=== PATIENT | female | born 1970 | race Caucasian/White ===

== ENCOUNTER 2024-05-02 07:56 | Emergency (ER) | payer OTHER, SELFPAY ==
[2024-05-02 08:12] VITALS: BP 109/74; PULSE 76; RESP 16; TEMP 36.6; O2SAT 95
[2024-05-02 08:32] LABS: Appearance Urine Clear (Clear); Bilirubin Urine Negative (Negative); Blood Urine Negative (Negative); Color Urine Yellow (Yellow); Glucose Urine Negative (Negative); Ketones Urine Negative (Negative); Leukocyte Esterase Urine Negative (Negative); Nitrite Urine Negative (Negative); Protein Urine Negative (Negative); Urobilinogen Urine 0.2 (0.2-1.0); pH Urine 6.5 (5.0-8.5)
--- NOTE | 2024-05-02 09:10 | CRLHL7_ITS ---
For Patients: As a result of the Century Cures Act, medical imaging exams and procedure reports are released immediately into your electronic medical record. You may view this report before your referring provider. If you have questions, please contact your health care provider. Indication: Left flank pain. Technique: CT of the abdomen and pelvis was performed without contrast. Comparison: 03/16/2015. Findings: Visualized lung bases: Clear. Liver: Similar too small to characterize hypodensity within the left hepatic lobe compared to prior CT from 2015. Normal gallbladder. No biliary ductal dilation. Pancreas: Mild stranding about the pancreatic tail. Pancreas is otherwise unremarkable. No peripancreatic fluid collection. Spleen: Unremarkable for unenhanced technique. Adrenals: Unremarkable for unenhanced technique. Kidneys: Punctate bilateral nonobstructing renal calculi. No hydronephrosis. No ureteral calculi. Aorta/IVC: Minimal atherosclerotic arterial calcifications. No aortic aneurysm. Lymph nodes: No lymphadenopathy. Bowel: Nonobstructed bowel. Normal appendix. No localized inflammatory changes. No intraperitoneal free air or fluid. Pelvis: Partially decompressed bladder. Otherwise unremarkable. Bones/body wall: Multilevel degenerative disc disease. Impression: 1. Mild stranding about the pancreatic tail concerning for acute pancreatitis. No discrete fluid collection is identified. 2. Punctate bilateral nonobstructing renal calculi. Please note that all CT scans at this facility use dose modulation, iterative reconstruction, and/or weight-based dosing when appropriate to reduce radiation dose to as low as reasonably achievable. Dictated by Julia Landers MD @ 05/02/2024 9:49:24 AM (Electronically Signed)
--- NOTE | 2024-05-02 09:11 | ED.GENADULT ---
HPI - General Adult General Chief complaint: Flank Pain Stated complaint: LT flank pain goes up back Time Seen by Provider: 05/02/24 09:04 History of Present Illness HPI narrative: This 54-year-old female comes in with left flank pain that began 3 days ago. She states she has had symptoms like this in the past which spontaneously resolved. She does not report any dysuria. She also has not had any strenuous activity or injury event recently. She arrives here with normal vital signs. She does not have any personal history of kidney stones that she knows of but states that her daughter recently passed a kidney stone. Related Data Home Medications ?Medication ?Instructions ?Recorded ?Confirmed famotidine 20 mg tablet mg 05/02/24 fluticasone propionate 50 intranasal 05/02/24 mcg/actuation nasal spray,suspension gabapentin 300 mg capsule mg 05/02/24 hydroxyzine HCl 10 mg tablet mg 05/02/24 ibuprofen 05/02/24 lisinopril 20 tab 05/02/24 mg-hydrochlorothiazide 12.5 mg tablet loratadine 10 mg tablet mg 05/02/24 lorazepam 1 mg tablet (Ativan) mg 05/02/24 omeprazole 20 mg tablet,delayed mg PO 05/02/24 release sertraline 100 mg tablet mg 05/02/24 Previous Rx's ?Medication ?Instructions ?Recorded hydrocodone 5 mg-acetaminophen 325 1 tab PO Q4-6H PRN pain #10 tabs 05/02/24 mg tablet ketorolac 10 mg tablet 10 mg PO Q8H 5 days #15 tabs 05/02/24 ondansetron HCl 4 mg tablet 4 mg PO Q6H #20 tabs 05/02/24 Allergies Allergy/AdvReac Type Severity Reaction Status Date / Time erythromycin base Allergy Verified 05/02/24 08:17 Sulfa (Sulfonamide Allergy Verified 05/02/24 08:17 Antibiotics) Review of Systems Status of ROS: Reports: 10 or more systems reviewed and unremarkable except as noted in History and below Narrative: Constitutional: No fevers, no weight gain or loss. Eyes: No discharge. No vision changes. HENT: No congestion, no sore throat, no ear pain. Cardiovascular: No chest pain, no palpitations. Respiratory: No shortness of breath, no wheezes, no cough. Gastrointestinal: No vomiting, no diarrhea. Left flank pain radiating into her left abdomen. Nausea but no vomiting. Genitourinary: No dysuria, no hematuria. Musculoskeletal: Normal range of motion. Skin: No rashes, no pruritis. Neurological: No dizziness, weakness, sensory change, speech change. Endo/Heme/Allergies: No bruising or bleeding. No polydipsia. Pysch: no suicidality, no anxiety, no insomnia. All other systems reviewed and are negative. [facility] Social History Smoking Status: Never smoker Do you use any of these nicotine containing products: None How often do you have a drink containing alcohol: never AUDIT-C Alcohol total score: 0 Non-prescribed substance use: marijuana (any form) Exam Narrative: Exam Narrative: Constitutional: Well-developed, well-nourished, no acute distress. HEENT: Normocephalic, atraumatic. Neck: Normal range of motion. Nontender. Supple. Heart: Regular. No murmurs. Normal rate. Intact distal pulses. Lungs: Clear to auscultation. No chest discomfort. No wheezes, rhonchi, or rales. Abdomen: Normal bowel sounds. No rebound tenderness. Left flank pain radiating into her left abdomen. Genitalia: Deferred. Back: No midline tenderness. Normal range of motion. Extremities: Normal range of motion. No injury. Skin: Intact. No rash. Warm. No erythema or pallor. Neurologic: No altered sensation. No weakness. Alert and oriented. Psychiatric: No suicidality. No anxiety or depression. No insomnia. Nursing notes and vitals signs are reviewed. Const: Vital Signs, click to edit/add: Vital Signs - 24 hr 05/02/24 08:12 Temperature 97.8 F Pulse Rate [Left P ulse Oximeter] 76 Respiratory Rate 16 Blood Pressure [Ri ght Upper Arm] 109/74 Pulse Oximetry 95 Oxygen Delivery Me thod Room Air Course Vital Signs Vital signs: Initial Vital Signs Temperature 97.8 F 05/02/24 08:12 Temperature Source Temporal Artery Scan 05/02/24 08:12 Pulse Rate 76 05/02/24 08:12 Respiratory Rate 16 05/02/24 08:12 Blood Pressure 109/74 05/02/24 08:12 Blood Pressure Mean 85 05/02/24 08:12 Blood Pressure Position Sitting 05/02/24 08:12 Pulse Oximetry 95 05/02/24 08:12 Oxygen Delivery Method Room Air 05/02/24 08:12 Vital Signs Temperature 97.8 F 05/02/24 08:12 Pulse Rate 76 05/02/24 08:12 Respiratory Rate 16 05/02/24 08:12 Blood Pressure 109/74 05/02/24 08:12 Pulse Oximetry 95 05/02/24 08:12 Oxygen Delivery Method Room Air 05/02/24 08:12 Temperature 97.8 F 05/02/24 08:12 Pulse Rate 76 05/02/24 08:12 Respiratory Rate 16 05/02/24 08:12 Blood Pressure 109/74 05/02/24 08:12 Pulse Oximetry 95 05/02/24 08:12 Oxygen Delivery Method Room Air 05/02/24 08:12 Medications Administered Medications: Discontinued Medications Generic Name Dose Route Start Last Admin Trade Name [place] PRN Reason Stop Dose Admin Hydrocodone Bitart/Acetaminophen 1 tab 05/02/24 09:10 05/02/24 09:24 Hydrocodone-Acetamin 5-325 Mg 1 Tab PO 05/02/24 09:11 1 tab ONCE ONE Administration Ketorolac Tromethamine 10 mg 05/02/24 09:10 05/02/24 09:25 Ketorolac 10 Mg Tablet PO 05/02/24 09:11 10 mg ONCE ONE Administration Ondansetron HCl 4 mg 05/02/24 09:10 05/02/24 09:24 Ondansetron Odt 4 Mg Tab PO 05/02/24 09:11 4 mg ONCE ONE Administration Medical Decision Making MDM Narrative Medical decision making narrative: This patient comes in with left flank pain that is somewhat suspicious for a kidney stone. She also reports postprandial symptoms with worsening pain and nausea. She has had symptoms like this in the past. A CT scan of the abdomen and pelvis without contrast is obtained and shows bilateral small kidney stones but no uropathy or obstruction in that regard. Her pancreas has some stranding that may indicate pancreatitis. Labs were then drawn which returned with normal results including normal lipase and liver studies. The patient did receive oral doses of Toradol, and [place], and Zofran and feels much better. I did advise her regarding signs and symptoms that would indicate a need for return and re-evaluation. I also recommended that she follow up with the primary physician or perhaps even a windshield wiper repairer and may wish to consider an upper GI scope. Nevertheless her symptoms may be related to a kidney stone that is now passed through. She is not having any symptoms currently. Lab Data Labs: Lab Results 05/02/24 05/02/24 Range/Units 08:25 10:19 WBC 9.19 (4.50-11.00) K/uL RBC 4.65 (4.00-5.20) m/uL Hgb 13.9 (12.0-16.0) gm/dL Hct 42.3 (33.0-51.0) % MCV 91 (80-100) fL MCH 30 (26-34) pg MCHC 33 (32-36) gm/dL RDW Coeff of Domenico 13.3 (11.5-15.5) % Plt Count 269 (140-440) K/uL Neut % (Auto) 68.0 (42.0-72.0) % Lymph % (Auto) 19.3 L (20-44) % [place] % (Auto) 10.9 (0.0-11.0) % Eos % (Auto) 1.5 (0.0-7.0) % Baso % (Auto) 0.2 (0.0-3.0) % Neut # (Auto) 6.25 (1.7-7.0) K/uL Lymph # (Auto) 1.80 (0.90-2.90) K/uL [place] # (Auto) 1.00 H (0.00-0.90) K/UL Eos # (Auto) 0.14 (0.00-0.50) K/uL Baso # (Auto) 0.02 (0.00-0.30) K/uL Abs Immat Gran (auto) 0.01 (0.00-0.30) K/uL Imm/Tot Granulo (auto) 0.1 % Sodium 134 L (135-149) mmol/L Potassium 3.5 L (3.6-5.1) mmol/L Chloride 101 (96-114) mmol/L Carbon Dioxide 27 (20-32) mmol/L Anion Gap 6 L (7-15) mEq/L BUN 14 (7-30) mg/dL Creatinine 0.6 (0.5-1.5) mg/dL Estimated Creat Clear 91.48 Estimated GFR 106 ml/min Glucose 112 (60-115) mg/dL Calcium 9.0 (8.4-10.6) mg/dL Total Bilirubin 0.4 (0.1-1.5) mg/dL Direct Bilirubin 0.2 (0.0-0.5) mg/dL AST 19 (12-35) U/L ALT 17 (4-35) U/L Alkaline Phosphatase 63 (40-150) U/L Total Protein 6.8 (6.0-8.3) g/dL Albumin 4.2 (3.3-5.0) g/dL Lipase 292 (23-300) U/L Urine Color Yellow (Yellow) Urine Appearance Clear (Clear) Urine pH 6.5 (5.0-8.5) Ur Specific [place] 1.020 (1.000-1.030) Urine Protein Negative (Negative) Urine Glucose (UA) Negative (Negative) Urine Ketones Negative (Negative) Urine Blood Negative (Negative) Urine Nitrite Negative (Negative) Urine Bilirubin Negative (Negative) Urine Urobilinogen 0.2 (0.2-1.0) Ur Leukocyte Esterase Negative (Negative) Imaging Data CT scan - abdomen: Radiologist's impression: 1. Mild stranding about the pancreatic tail concerning for acute pancreatitis. No discrete fluid collection is identified. 2. Punctate bilateral nonobstructing renal calculi. Discharge Plan Discharge Clinical Impression: Flank pain, Abdominal pain Additional Instructions: Take medication as needed and directed. Follow up with MD for ongoing management or return if worsening. Consider endoscopies also. Call [phone] for appointment. Prescriptions: New hydrocodone-acetaminophen 5-325 mg tablet 1 tab PO Q4-6H PRN (Reason: pain) Qty: 10 0RF ondansetron HCl 4 mg tablet 4 mg PO Q6H Qty: 20 0RF ketorolac 10 mg tablet 10 mg PO Q8H 5 Days Qty: 15 0RF No Action lisinopril-hydrochlorothiazide 20-12.5 mg tablet Patient Comments: TAKE ONE TABLET BY MOUTH EVERY DAY sertraline 100 mg tablet Patient Comments: TAKE ONE AND ONE-HALF TABLETS BY MOUTH EVERY DAY famotidine 20 mg tablet Patient Comments: [NO ORIGINAL SIG] gabapentin 300 mg capsule Patient Comments: [NO ORIGINAL SIG] lorazepam [Ativan] 1 mg tablet Patient Comments: [NO ORIGINAL SIG] hydroxyzine HCl 10 mg tablet Patient Comments: TAKE ONE TABLET BY MOUTH EVERY 6 HOURS NEEDED FOR ITCHING fluticasone propionate 50 mcg/actuation spray,suspension INTRANASAL Patient Comments: [NO ORIGINAL SIG] loratadine 10 mg tablet Patient Comments: [NO ORIGINAL SIG] omeprazole 20 mg tablet,delayed release (DR/EC) PO Patient Comments: TAKE ONE TABLET BY MOUTH EVERY DAY BEFORE A MEAL ibuprofen Follow Up/Referrals: Savannah Villaseñor PA [Primary Care Provider] -
[2024-05-02] MEDS: ONDANSETRON ODT 4 MG TAB PO (09:24)
[2024-05-02] MEDS: HYDROCODONE-ACETAMIN 5-325 MG 1 TAB PO (09:24)
[2024-05-02] MEDS: KETOROLAC 10 MG TABLET PO (09:25)
--- OUTSIDE RECORDS SUMMARY | 2024-05-02 09:32 | XMS_ITS | Referral Summary ---
Author Organization [place] Address [address] [place] [address] Care Team Providers Care Consulting Services Manager Name Role Phone Clinic, [facility] Primary Care Provide r Allergies Active Allergy Reactions Criticality Noted Date Comments Acetaminophen Itching 11/22/2009 Erythromycin 02/01/2003 unknown Sulfa Antibiotics 11/15/2002 unknown Trazodone And Nefazodone 11/15/2002 unknown Bupropion 10/24/2018 Medications methylphenidate (CONCERTA) 27 MG CR tabletIndications: ADHD (attention deficit hyperactivity disorder) Take 1 tablet by mouth every morning. 31 tablet 0 1 Active lorazepam (ATIVAN) 1 MG tabletIndications: Anxiety attack Take 1 tablet by mouth every 6 hours as needed for anxiety. 24 tablet 0 1 Active buPROPion (WELLBUTRIN XL) 300 MG 24 hr tabletIndications: Mild major depression (H) Take 1 tablet by mouth every morning. 90 tablet 1 1 Active cyanocobalamin 1000 MCG/ML injectionIndicatio ns:Pernicious anemia Inject 1 mL as directed every 30 days. 1 mL 5 1 Active loratadine (CLARITIN) 10 MG tabletIndications: Chronic rhinitis Take 1 tablet by mouth daily. 90 tablet 1 1 Active Needle, Disp, (B-D HYPODERMIC NEEDLE) 25G X 1 MISCIndications:Vi tamin B 12 deficiency 1 Device every 30 days. 12 each 0 1 Active telmisartan (MICARDIS) 40 MG tabletIndications: Benign hypertension Take 1 tablet by mouth daily. 90 tablet 1 1 Active amitriptyline (ELAVIL) 25 MG tabletIndications: Sleep disorder Take 1 tablet by mouth At Bedtime. 90 tablet 3 2 Active Escitalopram Oxalate (LEXAPRO PO) Take by mouth. Active methylprednisoLONE (MEDROL DOSEPACK) 4 MG tablet Take 1 tablet by mouth See Admin Instructions. Follow package directions. 1 Package 0 2 Active methocarbamol (ROBAXIN) 750 MG tablet Take 0.5 tablets by mouth 4 times daily as needed. 30 tablet 0 2 Active albuterol (PROAIR HFA/PROVENTIL HFA/VENTOLIN HFA) 108 (90 BASE) MCG/ACT Inhaler Inhale 2 puffs into the lungs every 6 hours as needed for shortness of breath / dyspnea or wheezing 1 Inhaler 8 Active oxyCODONE-acetamin ophen (PERCOCET) 5-325 MG tablet Take 1-2 tablets by mouth every 4 hours as needed for pain 12 tablet 9 Active Active Problems Problem Noted Date Diagnosed Date HYPERLIPIDEMIA LDL GOAL <130 04/28/2010 Mild major depression 10/02/2009 ADHD (attention deficit hyperactivity disorder) 09/07/2009 Endometriosis 12/22/2007 Tobacco use disorder 06/02/2007 Family history of diabetes mellitus 03/26/2005 Essential hypertension 02/19/2005 Overview (03/29/2015): Problem list name updated by automated process. Provider to review Abnormal maternal glucose to lerance, complicating , childbirth, or the puerperium, unspecified as to episode of care 03/18/2004 Generalized anxiety disorder 05/11/2003 Migraine 11/15/2002 Overview (03/29/2015): Problem list name updated by automated process. Provider to review Pernicious anemia Overview (04/30/2015): Diagnosis updated by automated process. Provider to review and confirm. Resolved Problems Problem Noted Date Diagnosed Date Resolved Date Pure hypercholesterolemia 06/16/2007 Depressive disorder, not elsewhere classified 11/16/19 03 10/02/2009 Immunizations Name Administration Dates Next Due HepB 05/15/2008,11/05/2007,09/20/2007 Influenza (IIV3) PF 05/15/2008,08/17/2006,2002 Pneumococcal 23 valent 09/06/2010 TD,PF 7+ (Tenivac) 11/10/1997 TDAP Vaccine (Adacel) 12/22/2007 Social History Tobacco Use Types Packs/Day Years Used Date Smoking Tobacco: Every Day Cigarettes Smokeless Tobacco: Never Alcohol Use Standard Drinks/Week Comments No 0 (1 standard drink = 0.6 oz pur e alcohol) Adolescent Education Answer Date Record ed Getting School Help Needed Not on file 04/04 Comments No Sex and Gender Information Value Date Recorded Sex Assigned at Not on file Legal Sex 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 Gender Identity Not on file Sexual Orientation Not on file 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 on file Not on file Not on file Last Filed Vital Signs Vital Sign Reading Time Taken Comments Blood Pressure 179/115 10/24/2018 11:03 AM CDT Pulse 83 10/24/2018 11:03 AM CDT Temperature 36.6 ??C (97.9 ??F) 10/24/2018 11:03 AM C DT Respiratory Rate 16 10/24/2018 11:03 AM CDT Oxygen Saturation 100% 10/24/2018 11:03 AM CDT Inhaled Oxygen Concentration - - Weight 83 kg (183 lb) 10/24/2018 11:03 AM CDT Height 162.6 cm (5' 4) 08/26/2017 1:50 PM RADIOSONDE OPERATOR Body Mass Index 31.41 08/26/2017 1:50 PM RADIOSONDE OPERATOR Plan of Treatment Not on file Insurance / Care Teams Consulting Services Manager Relationship Specialty Start Date End Date [facility], [facility] [address] [place] [address] PCP - General 05/15/16
--- OUTSIDE RECORDS SUMMARY | 2024-05-02 09:32 | XMS_ITS | Clinical Summary ---
Author Organization [place] Address [address] [place] [id number] Care Team Providers Care Lead Consultant Name Role Phone Clinic, [facility] Primary Care Provide r Allergies Active Allergy [...] 7+ (Tenivac) 11/10/1997 TDAP Vaccine (Adacel) 12/22/2007 Family History Medical History Relation Comments Cancer Father lymphoma Cardiovascular Father Heart Disease Father Bypass - stent p lacement - age 70 Hypertension Father Alzheimer Disease Maternal Grandfather Cardiovascular Maternal Grandmother CHF Diabetes Maternal Grandmother Neurologic Disorder Mother brain tumour removed - benign C.A.D. 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
--- OUTSIDE RECORDS SUMMARY | 2024-05-02 09:33 | XMS_ITS | Encounter Summary ---
Author Organization [place] Address [address] [place] [address]. [place] [address] Care Team Providers Care Idea Worker Name Role Phone Damari Minaya MD Primary Care Provider [phone] Clinic, [facility] Primary Care Provider [facility] Primary Care Provide r Encounter Details Date Type Department Care Team (Late st Contact Info) Description 09/02/2005 [facility] [id number] [place] [id number] [place] [id number] [place] [id number] 09-02-05 Social History Tobacco Use Types Packs/Day Years Used Date Smoking Tobacco: Every Day Cigarettes Smokeless Tobacco: Never Alcohol Use Standard Drinks/Week Comments No 0 (1 standard drink = 0.6 oz pur e alcohol) Comments No Sex and Gender Information Value Date Recorded Sex Assigned at Not on file 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 Gender Identity Not on file Sexual Orientation Not on file 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 Not on file Not on file documented as of this encounter Plan of Treatment Not on file documented as of this encounter Visit Diagnoses Diagnosis OPERATIVE REPORT- Primary documented in this encounter Care Teams Idea Worker Relationship Specialty Start Date End [place]ari Min[place] [id number] [place] [address] [place] [address] PCP - General 08/13/01 06/10/12 [facility] [address] [place] [address] PCP - General 06/11/12 05/14/16 [facility] [address] [place] [address] PCP - General 05/15/16 documented as of this encounter
--- OUTSIDE RECORDS SUMMARY | 2024-05-02 09:33 | XMS_ITS | Clinical Summary ---
Author Organization [employer] [facility] Address [place], [place] [address] Care Team Providers Care Supply Person Name Role Phone Savannah Villaseñor Primary Care Provider Allergies Active Allergy Reactions Criticality Noted Date Comments Bupropion *Unknown 10/24/2018 Citalopram Palpitations,Diaphor esis 11/05/2020 Erythromycin *Unknown 09/01/2005 Hydrocodone-Acetaminoph en Itching 11/05/2020 Sulfa (Sulfonamide Antibiotics) Rash 09/01/2005 Allergies and reactions per H&P. Medications Medication Sig Dispensed Refills Start Date End Date Status LORazepam (ATIVAN) 1 mg tablet Take 1 mg by mouth. 09/13/2019 Active sertraline (ZOLOFT) 100 mg tablet Take 100 mg by mouth once daily. 03/04/2021 Active albuterol HFA (ProAir HFA) 90 mcg/actuation inhalerIndications :Mild intermittent asthma without complication Inhale 2 Puffs by mouth 4 times daily if needed for Shortness Of Breath. 1 Each 4 02/28/2022 Active fluticasone (50 mcg per actuation) nasal solution (FLONASE)Indicatio ns:Acute recurrent maxillary sinusitis Inhale 2 Sprays to both nostrils once daily. 48 g 3 04/23/2023 Active ketoconazole 2% shampoo (NIZORAL) 2 % shampooIndications :Pruritus, unspecified Use 2-3 times per week 120 mL 2 10/23/2023 Active famotidine (PEPCID) 20 mg tabletIndications: Gastroesophageal reflux disease, unspecified whether esophagitis present TAKE 1 TABLET TWICE A DAY 60 Tablet 12/29/2023 Active omeprazole 20 mg tabletIndications: Gastric reflux Take 1 Tablet (20 mg) by mouth once daily before a meal. 60 Tablet 02/05/2024 Active hydrOXYzine HCL (ATARAX) 10 mg tabletIndications: Pruritus, unspecified Take 1 Tablet (10 mg) by mouth every 6 hours if needed for Itching. 30 Tablet 1 02/05/2024 Active loratadine (CLARITIN) 10 mg tabletIndications: Allergic rhinitis, unspecified seasonality, unspecified trigger TAKE 1 TABLET DAILY 90 Tablet 3 02/24/2024 Active gabapentin (NEURONTIN) 300 mg capsuleIndications :Myalgia TAKE 1 CAPSULE AT BEDTIME 90 Capsule 03/16/2024 Active lisinopril-hydroch lorothiazide 20-12.5 mg tablet (PRINZIDE)Indicati ons:Hypertension, unspecified type Take 1 Tablet by mouth once daily. 15 Tablet 04/24/2024 Active lisinopril-hydroch lorothiazide 20-12.5 mg tablet (PRINZIDE)Indicati ons:Hypertension, unspecified type Take 1 Tablet by mouth once daily. 30 Tablet 03/24/2024 4 Discontinued Active Problems Problem Noted Date Diagnosed Date Pap smear for cervical cancer screening 11/28/19 23 Overview (01/26/2023): 11/2022 NIL/HPV negative. Plan: Pap/HPV due 11/2027. Diffuse pain 02/28/2022 Myofascial pain 02/28/2022 Bruxism 11/14/2021 Bilateral temporomandibular joint pain 2 Hypertension 07/30/2021 Body aches 07/30/2021 Arthralgia 07/30/2021 Chronic GERD 12/28/2020 Hemorrhoids, internal 12/28/2020 Atypical chest pain 11/09/2020 Tinnitus of both ears 11/09/2020 Polyneuropathy, unspecified 06/20/2020 Insufficient sleep syndrome 03/14/2019 Other spondylosis with radiculopathy, cervical r egion 11/04/2018 Presbyopia 02/22/2018 Hypermetropia of both eyes 02/22/2018 B12 deficiency 06/10/2011 Back strain 02/01/2010 Mild major depression 10/02/2009 Endometriosis 12/22/2007 Migraine 11/15/2002 Overview (11/09/2020): Problem list name updated by automated process. Provider to review Unspecified essential hypertension Irritable bowel syndrome without diarrhea Resolved Problems Problem Noted Date Diagnosed Date Resolved Date Pruritus, unspecified 2020 Acute maxillary sinusitis, unspecified 03/21/2021 Encounters Date Type Department Care Team Description 04/20/2024 Telephone [facility] [place] [address] [address] Savannah Villaseñor PA Refill Request (Lisinopril-hydroch lorothiazide (20-12.5 Mg)) 03/15/2024 Refill [facility] [place] [address] [place] [address] Savannah Villaseñor PA Refill Request (Lisinopril-HCTZ/) 03/13/2024 Refill [facility] [id number] [place] [phone] Yumiko Hernandez MD Refill Request (Gabapentin) 02/22/2024 Refill [facility] [address] [place] [address] Yumiko Hernandez MD Refill Request (Loratadine) 02/08/2024 Orders Only [facility] [place] [address] [place] [address] Savannah Villaseñor PA 1 scan: (1-Ord) 02/05/2024 02/07/2024 Orders Only [facility] [place] [address] [place] [address] Savannah Villaseñor PA <No scans attached> 02/05/2024 1:55 PM CDT Ancillary Procedure [place] [id number] [place] [address] 02/05/2024 1:10 PM CDT Office Visit [facility] [place] [address] [place] [address] Savannah Villaseñor PA Derm Problem (all over); Hair/Scalp Problem (hair loss ) 02/05/2024 Travel 02/02/2024 Travel from Last 3 Months Immunizations Name Administration Dates Next Due COVID-19 vaccine (Moderna 100mcg/0.5mL) PF, MDV 09/11/2020,08/14/2020 COVID-19 vaccine (Pfizer-Bio NTech 30mcg/0.3mL) 12YO+ REBEKAH-SUCROSE PF, MDV 07/26/2021 Hepatitis B (Adult) 05/15/2008,11/05/2007,2007 Influenza, IIV3 (Age >=3 years) 04/15/20 12,05/15/2008,08/17/2006,2002 Influenza, IIV4 07/26/2021, 0,04/19/2019,2016,04/09/2016,07/16/2015 Influenza, Intradermal Inactivated 04/06/2013 Pneumococcal Poly,23-Valent (Pneumovax) 09/06/2010 Pneumococcal conj 13-Valent (Prevnar 13) 12/22/2022 Rabies Vaccine 07/02/2008 Td (Age >=7 Years) 12/22/2007,11/10/1997, 997 Td, Preservative Free (age > = 7 Years) 11/10/1997 Tdap 12/22/2022,12/22/2007 Zoster (Shingrix-RZV, recombinant) 12/22/2022 Family History Medical History Relation Name Comments Coronary artery disease Father Lymphoma Father Other Maternal Grandmother Pernici ous anemia COPD Mother Hypertension Mother Cancer-breast No Family History Relation Name Status Comments Father Maternal Grandmother Mother Social History Tobacco Use Types Packs/Day Years Used Date Smoking Tobacco: Former Cigarettes Q uit: 06/22/2012 Smokeless Tobacco: Never Tobacco Cessation:Counseling Given: Yes Comments:pamphlet given 11/19/2011 Alcohol Use Standard Drinks/Week Comments No 0 (1 standard drink = 0.6 oz pur e alcohol) PHQ-2 Answer Date Recorded PHQ-2 TOTAL SCORE 0 02/05/2024 Social Connections Answer Date Recorded Do you often feel lonely or isolated from those around you? 0 09/21/2023 Financial Resource Strain Answer Date R ecorded Difficulty of Paying Living Expenses 3 09/22/2023 Difficulty of Paying Living Expenses Not on file 09/22/2023 Food Insecurity Answer Date Recorded Do you worry your food will run out before you are able to buy more? 1 09/21/2023 Transportation Needs Answer Date Record ed Does lack of transportation keep you from medica l appointments? 1 09/21/2023 Does lack of transportation keep you from work, meetings or getting things that you need? 1 09/21/2023 Housing Stability Answer Date Recorded What is your housing situation today? 1 09/21/2023 Sex and Gender Information Value Date Recorded Sex Assigned at Not on file Gender Identity Not on file Sexual Orientation Not on file Obstetrics History Para Term AB IAB SAB Ectopic Multiple Livin g Live Births 3 3 3 3 Date Outcome GA Total Labor Labor/2nd/3rd Weight Sex Type Anes PTL Kathryn A1 A5 Name Clin Term Term Term Last Filed Vital Signs Vital Sign Reading Time Taken Comments Blood Pressure 116/72 02/05/2024 1:10 PM CDT Pulse 95 02/05/2024 1:10 PM CDT Temperature 37.1 ??C (98.7 ??F) 02/05/2024 1:10 PM CD T Respiratory Rate 18 12/22/2022 10:00 AM CDT Oxygen Saturation 95% 02/05/2024 1:10 PM CDT Inhaled Oxygen Concentration - - Weight 80 kg (176 lb 6.4 oz) 02/05/2024 1:10 PM CDT Height 163 cm (5' 4.17) 02/05/2024 1:10 PM CDT Body Mass Index 30.12 02/05/2024 1:10 PM CDT Plan of Treatment Health Maintenance Due Date Last Done Comments Colonoscopy through age 75 2014 Zoster (shingles) series for age 50+ (2 of 2) 02/16/2023 12/22/2022 Mammogram for age 45-75 01/15/2024 01/15/20 23, 10/03/2021, 02/14/2020, Additional history exists COVID-19 vaccine series ( season) 2024 07/26/2021, 09/11/2020, 08/14/2020 Influenza for age 50-64 02/28/2024 07/26/19 22, 04/30/2020, 04/19/2019, Additional history exists BMI (ht and wt on same day) for age 18+ 02/04/2025 02/05/2024, 10/23/2023, 12/22/2022, Additional history exists Depression screening for age 12+ 02/06/2025 02/07/2024, 02/05/2024, 12/22/2022, Additional history exists Pap test for age 21-65 12/23/2027 , 12/22/2022, 12/23/2010 (Completed outside of [facility]) Lipids for age 45-75 02/13/2028 02/12/2023, 12/22/2022, 07/30/2021 Tetanus booster 12/22/2032 12/22/2022, 11/28, 12/22/2007, Additional history exists HIV for age 15-65 Completed 12/22/2022 Hepatitis C screening for age 18-79 Completed 12/22/2022 Pneumococcal series for age 6-64 Aged Out 12/22/2022, 09/06/2010 No longer eligibl e based on patient's age to complete this topic Tdap Completed 12/22/2022, 12/22/2007 Procedures Procedure Name Priority Date/Time Associated Diagnosis Comments CBC WITH AUTO DIFFERENTIAL Routine 02/05/2024 2:05 PM CDT Pruritus, unspecified FERRITIN Routine 02/05/2024 2:05 PM CDT Pruritus, unspecified IRON PLUS IRON BINDING CAP Routine 02/05/2024 2:05 PM CDT Pruritus, unspecified CBC WITH AUTO DIFFERENTIAL Routine 02/05/2024 2:05 PM CDT Pruritus, unspecified VITAMIN D 25 (DEFICIENCY) Routine 02/05/2024 2:05 PM CDT Pruritus, unspecified Hair loss VITAMIN B12 Routine 02/05/2024 2:05 PM CDT Pruritus, unspecified TSH WITH REFLEX Routine 02/05/2024 2:05 PM CDT Hair loss XR FOOT 3 VIEWS RIGHT Routine 02/05/2024 2:03 PM CDT Foot pain, right EKG 12 LEAD Routine 02/05/2024 12:00 AM CDT Chest heaviness LIPID PANEL W REFLEX MEASURED LDL Routine 02/12/2023 10:41 AM CDT Elevated lipids XR MAMMO BILAT SCREENING Routine 01/14/2023 11:26 AM CDT Visit for screening mammogram LC HIV-1/O/2, 4TH GENERATION Routine 12/22/2022 10:59 AM CDT Routine general medical examination at a health care facility LC HCV ANTIBODY RFX TO QUANT PCR Routine 12/22/2022 10:59 AM CDT Routine general medical examination at a health care facility HPV HIGH RISK Routine 12/22/2022 10:30 AM CDT Cervical cancer screening from Last 3 Months or Most Recently Relevant to Health Maintenance Results * (ABNORMAL) CBC WITH AUTO DIFFERENTIAL (02/05/2024 2:05 PM CDT) WHITE BLOOD COUNT 8.9 4.5 - 11.0 thou/cu mm 02/05/2024 2:07 PM CDT [facility] [place] [place] RED BLOOD COUNT 4.71 4.00 - 5.20 mil/cu mm 02/05/2024 2:07 PM CDT [facility] [place] [place] HEMOGLOBIN 14.3 12.0 - 16.0 g/dL 02/05/2024 2:07 PM CDT [facility] [place] [place] HEMATOCRIT 43.9 33.0 - 51.0 % 02/05/2024 2:07 PM CDT [facility] [place] [place] MCV 93 80 - 100 fL 02/05/2024 2:07 PM CDT [facility] [place] [place] MCH 30.4 26.0 - 34.0 pg 02/05/2024 2:07 PM CDT [facility] [place] [place] MCHC 32.6 32.0 - 36.0 g/dL 02/05/2024 2:07 PM CDT [facility] [place] [place] RDW 13.8 11.5 - 15.5 % 02/05/2024 2:07 PM CDT [facility] [place] [place] PLATELET COUNT 254 140 - 440 thou/cu mm 02/05/2024 2:07 PM CDT [facility] [place] [place] MPV 10.8 6.5 - 11.0 fL 02/05/2024 2:07 PM CDT [facility] [place] [place] % NEUT 64.0 % 02/05/2024 2:07 PM CDT [facility] [place] [place] % LYMPH 23.0 % 02/05/2024 2:07 PM CDT [facility] [place] [place] % MONO 10.0 % 02/05/2024 2:07 PM CDT [facility] [place] [place] % EOS 2.7 % 02/05/2024 2:07 PM CDT [facility] [place] [place] % BASO 0.3 % 02/05/2024 2:07 PM CDT [facility] [place] [place] ABSOLUTE NEUTROPHILS 5.7 1.7 - 7.0 thou/cu mm 02/05/2024 2:07 PM CDT [facility] [place] [place] ABSOLUTE LYMPHOCYTES 2.1 0.9 - 2.9 thou/cu mm 02/05/2024 2:07 PM CDT [facility] [place] [place] ABSOLUTE MONOCYTES 0.9(H) <0.9 thou/cu mm 02/05/2024 2:07 PM CDT [facility] [place] [place] ABSOLUTE EOSINOPHILS 0.2 <0.5 thou/cu mm 02/05/2024 2:07 PM CDT [facility] [place] [place] ABSOLUTE BASOPHILS 0.0 <0.3 thou/cu mm 02/05/2024 2:07 PM CDT [facility] [place] [place] Blood BLOOD SPECIMEN / Unknown Venipuncture / Unknown 02/05/2024 2:05 PM CDT 02/05/2024 2:05 PM CDT Savannah MAYERS HEMATOLOGY Performing Organization Address [facility]/ZIP Co de Phone Number [facility] [place] [place] [address] [facility] [address], * TSH WITH REFLEX (02/05/2024 2:05 PM CDT) TSH 0.40 0.27 - 4.20 uIU/mL 02/06/2024 5:47 AM CDT [facility] Blood BLOOD SPECIMEN / Unknown Venipuncture / Unknown 02/05/2024 2:05 PM CDT 02/05/2024 2:05 PM CDT Narrative [facility] - 02/06/2024 5:47 AM CDT In Adults, TSH values between 5.00 and 10.00 uIU/ml do not necessarily indicate the presence of Hypothyroidism. Correlation with clinical findings such as presence of goiter and/or Thyroperoxidase (TPO) Antibody may be helpful. For more information please refer to JASON 2004; 291: 228-238. Savannah MAYERS CHEMISTRY Performing Organization Address [facility] Co de Phone Number [facility] [address] [place] [address], * VITAMIN D 25 (DEFICIENCY) (02/05/2024 2:05 PM CDT) VITAMIN D TOTAL 42.8 20.0 - 80.0 ng/mL 02/06/2024 5:47 AM CDT [facility] Blood BLOOD SPECIMEN / Unknown Venipuncture / Unknown 02/05/2024 2:05 PM CDT 02/05/2024 2:05 PM CDT Narrative [facility] - 02/06/2024 5:47 AM CDT ? Vitamin D Status Deficiency: ? <20 ng/mL Insufficiency: ?20-29 ng/mL Sufficiency: ?30-80 ng/mL Possible Toxicity: ??>80 ng/mL Based on [place] of Medicine recommendations Biotin supplements may cause clinically significant interference for this test assay. ??If interference is suspected, it is strongly recommended that biotin is discontinued for at least one week prior to retesting. Savannah MAYERS SEND OUTS Performing Organization Address [facility] Co de Phone Number [facility] [address] [place] [address], * IRON PLUS IRON BINDING CAP (02/05/2024 2:05 PM CDT) IRON 85 37 - 145 ug/dL 02/06/2024 5:47 AM CDT [facility] UIBC (UNSATURATED) 190 112 - 347 ug/dL 02/06/2024 5:47 AM CDT [facility] IRON BINDING CAPACITY 275 250 - 400 ug/dL 02/06/2024 5:47 AM CDT [facility] IRON,% SATURATION 31 14 - 50 % 02/06/2024 5:47 AM CDT [facility] Blood BLOOD SPECIMEN / Unknown Venipuncture / Unknown 02/05/2024 2:05 PM CDT 02/05/2024 2:05 PM CDT Savannah MAYERS CHEMISTRY Performing Organization Address [facility] Co de Phone Number [facility] [address] [place] [address], * FERRITIN (02/05/2024 2:05 PM CDT) FERRITIN 134.0 15.0 - 150.0 ng/mL 02/06/2024 5:47 AM CDT [facility] Blood BLOOD SPECIMEN / Unknown Venipuncture / Unknown 02/05/2024 2:05 PM CDT 02/05/2024 2:05 PM CDT Savannah MAYERS CHEMISTRY Performing Organization Address [facility] Co de Phone Number [facility] [address] [place] [id number], [place] * VITAMIN B12 (02/05/2024 2:05 PM CDT) VITAMIN B12 525 232 - 1,245 pg/mL 02/06/2024 5:47 AM CDT [facility] Blood BLOOD SPECIMEN / Unknown Venipuncture / Unknown 02/05/2024 2:05 PM CDT 02/05/2024 2:05 PM CDT Narrative [facility] - 02/06/2024 5:47 AM CDT Biotin supplements may cause clinically significant interference for this test assay. ??If interference is suspected, it is strongly recommended that biotin is discontinued for at least one week prior to retesting. Savannah MAYERS CHEMISTRY Performing Organization Address [facility] de Phone Number [facility] [address] [place] [phone], [place] * XR FOOT 3 VIEWS RIGHT (02/05/2024 2:03 PM CDT) Anatomical Region Laterality Modality FEET, FOOT R Computed Radiogr aphy 02/05/2024 3:18 PM CDT Narrative 02/05/2024 3:18 PM CDT For Patients: ??As a result of the Century Cures Act, medical imaging exams and procedure reports are released immediately into your electronic medical record. ??You may view this report before your referring provider. ??If you have questions, please contact your health care provider. Indication: Right foot pain. Technique: Right foot 3 views Comparison: None Findings: Narrowing and spurring at the 1st MTP joint. Plantar calcaneal spur with adjacent ossicles. Pes cavus. No fracture. Midfoot alignment normal. Impression: First MTP degenerative joint disease, pes cavus and chronic plantar fasciitis with prominent plantar calcaneal spur. Dictated by Shabbir Ramos MD @ 02/05/2024 3:18:03 PM (Electronically Signed) Procedure Note Shabbir Ramos MD - 02/05/2024 For Patients: As a result of the 21st Century Cures Act, medical imagingexams and procedure reports are released immediately into your electronicmedical record. You may view this report before your referring provider.If you have questions, please contact your health care provider. Indication: Right foot pain. Technique: Right foot 3 views Comparison: None Findings: Narrowing and spurring at the 1st MTP joint. Plantar calcaneal spur withadjacent ossicles. Pes cavus. No fracture. Midfoot alignment normal. Impression: First MTP degenerative joint disease, pes cavus and chronic plantarfasciitis with prominent plantar calcaneal spur. Dictated by Shabbir Ramos MD @ 02/05/2024 3:18:03 PM (Electronically Signed) Savannah MAYERS GENERAL IMAGIN G * EKG 12 LEAD (02/05/2024 12:00 AM CDT) Savannah MAYERS EKG ORD * (ABNORMAL) LIPID PANEL W REFLEX MEASURED LDL (02/12/2023 10:41 AM CDT) CHOLESTEROL,TOTAL 217(H) 100 - 199 mg/dL 02/13/2023 12:55 AM CDT [facility] [employer] TRAL [facility]AT[facility] Comment: Cholesterol, Total Reference Ranges Desirable <200 mg/dL Borderline 200-239 mg/dL High >=240 mg/dL TRIGLYCERIDES 134 <150 mg/dL 02/13/2023 12:55 AM CDT [facility] [employer] [facility]ORAT[facility] HDL CHOLESTEROL 55 >40 mg/dL 12:55 AM CDT [facility] [employer] TRAL LABORATORY NON-HDL CHOLESTEROL 162(H) <145 mg/dl 02/13/2023 12:55 AM CDT [facility] [employer] LABORATORY-[facility] TRAL LABORATORY CHOL/HDL RATIO 3.95 <4.50 02/13/2023 12:55 AM CDT [facility] TRAL LABORATORY LDL CHOLESTEROL 135(H) <=130 mg/dL 02/13/2023 12:55 AM CDT [facility] TRAL LABORATORY VLDL CHOLESTEROL 27 <=30 mg/dL 02/13/2023 12:55 AM CDT [facility] TRAL LABORATORY PROVIDER ORDERED STATUS RANDOM 02/13/2023 12:55 AM CDT [facility] TRAL [facility]ORAT[facility] Blood BLOOD SPECIMEN / Unknown Venipuncture / Unknown 02/12/2023 10:41 AM CDT 02/12/2023 10:41 AM CDT Yumiko Hernandez MD [facility] [address] [place] [address], [place] * XR MAMMO BILAT SCREENING (01/14/2023 11:26 AM CDT) Anatomical Region Laterality Modality BREASTS, Breast Left, Breast Right Bilateral Mammography Impressions 01/15/2023 9:18 AM CDT ??There is no radiographic evidence for malignancy. ??Recommend annual mammograms. MAMMOGRAM ASSESSMENT: ??ACR 1 Negative PATIENTS: You will also receive a letter with your examination results in an easy to read format. ??If you have questions about your results, please contact your referring provider. Narrative 01/15/2023 9:18 AM CDT For Patients: As a result of the Century Cures Act, medical imaging exams and procedure reports are released immediately into your electronic medical record. You may view this report before your referring provider. If you have questions, please contact your health care provider. XR MAMMO BILAT SCREENING [[id number]] CLINICAL HISTORY: ??This is an asymptomatic 52 y.o. patient. INDICATION FOR EXAM: Mammogram Screening. TECHNIQUE: CC & MLO views were obtained. ??This study was evaluated with the assistance of Computer-Aided Detection. COMPARISON FILM: Yes 10/03/21 ?? 02/14/20 ?? FINDINGS: ??The breasts have scattered areas of fibroglandular density. There are no dominant masses, suspicious micro calcifications or areas of architectural distortion. Tisha Macias DO MAMMO * LC HCV ANTIBODY RFX TO QUANT PCR (12/22/2022 10:59 AM CDT) HCV Ab Non Reactive Non Reactive 12/24/2022 1:09 PM CDT [facility] ([facility] Blood BLOOD SPECIMEN / Unknown Venipuncture / Unknown 12/22/2022 10:59 AM CDT 12/22/2022 10:59 AM CDT [facility] ([facility]) - 12/24/2022 1:09 PM CDT Performed at: ??[address] ??[id number] Abattoir Manager: Tiago Espinoza MD, Phone: ??[phone] Yumiko Hernandez MD LABORATORY Performing Organization Address [facility]/ZIP Co de Phone Number [facility] ([facility]) [address] [place] [address] * LC HIV-1/O/2, 4TH GENERATION (12/22/2022 10:59 AM CDT) [facility] HIV Scr 4th Gen Non Reactive Non Reactive 12/24/2022 10:06 PM CDT [facility] ([facility]) Comment: HIV Negative HIV-1/HIV-2 antibodies and HIV-1 p24 antigen were NOT detected. There is no laboratory evidence of HIV infection. Blood BLOOD SPECIMEN / Unknown Venipuncture / Unknown 12/22/2022 10:59 AM CDT 12/22/2022 10:59 AM CDT [facility] ([facility]) - 12/24/2022 10:06 PM CDT Performed at: ??[address] ??[id number] Abattoir Manager: Tiago Espinoza MD, Phone: ??[phone] Yumiko Hernandez MD LABORATORY Performing Organization Address [facility]/ZIP Co de Phone Number [facility] ([facility]) [address] [place] [address] * HPV HIGH RISK (12/22/2022 10:30 AM CDT) TYPE 16 Negative Negative 12/25/2022 11:12 AM CDT [facility] TRA LABORATORY TYPE 18 Negative Negative 12/25/2022 11:12 AM CDT [facility] LAB[facility]ATORY OTHER HIGH RISK TYPES Negative Negative 12/25/2022 11:12 AM CDT [facility] Other (Cervical) Non-Blood / Unknown 12/22/2022 10:30 AM CDT 12/23/2022 2:16 PM CDT Narrative [facility] - 12/25/2022 11:12 AM CDT HPV types 16, 18, 31, 33, 35, 39, 45, 51, 52, 56, 58, 59, 66 and 68 DNA were undetectable or below the pre-set threshold. Methodology: [employer] 4800 HPV Test Yumiko Hernandez MD MICROBIOLOGY [facility] 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
--- OUTSIDE RECORDS SUMMARY | 2024-05-02 09:33 | XMS_ITS | Encounter Summary ---
Author Organization [facility] Address [address] [place] [address]. [place] [address] Care Team Providers Care Railroad Baggage Porter Name Role Phone Damari Minaya MD Primary Care Provider [phone] Clinic, [facility] Primary Care Provider [facility], [facility] Primary Care Provide r Encounter Details Date Type Department Care Team (Late st Contact Info) Description 07/02/2008 [facility] [id number] [place] [id number] Damari Minaya [place] [id number] [place] [address] [phone] 07-02-08 Social History Tobacco Use Types Packs/Day Years Used Date Smoking Tobacco: Every Day Cigarettes Smokeless Tobacco: Never Alcohol Use Standard Drinks/Week Comments No 0 (1 standard drink = 0.6 oz pur e alcohol) Comments No Sex and Gender Information Value Date Recorded Sex Assigned at Not on file 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 Gender Identity Not on file Sexual Orientation Not on file 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 Not on file Not on file Not on file documented as of this encounter Plan of Treatment Not on file documented as of this encounter Visit Diagnoses Diagnosis ER REPORT- Primary documented in this encounter Care Teams Railroad Baggage Porter Relationship Specialty Start Date End [place] Damari [place] [id number] [place] [address] [place] [address] PCP - General 08/13/01 06/10/12 [facility], [facility] [address] [place] [address] PCP - General 06/11/12 05/14/16 [facility], [facility] [address] [place] [address] PCP - General 05/15/16 documented as of this encounter
--- OUTSIDE RECORDS SUMMARY | 2024-05-02 09:33 | XMS_ITS | Continuity of Care Document ---
Author Name [facility] Organization [facility] Care Team Providers Care Machine Packager Name Role Phone [facility] Unavailable Unavailable Medications Combined list of outpatient medications from Department of Defense and Veterans Affairs facilities.Medications provided include 1) outpatient medications from the last 15 months, and 2) patient-reported medications. Medication Details Route Status Patient Instructions Prescription Expires Prescription Number Last Dispense Date Ordering Provider Order Date Order Qty Source ATIVAN (LORAZEPAM) , 1 MG, TABLET, ORAL, VALEANT, 100 ea. BOTTLE Cancele d [id number] : 2023 0 Pharmac y Data Transac tion Service Facilit y ATIVAN (LORAZEPAM) , 1 MG, TABLET, ORAL, VALEANT, 100 ea. BOTTLE Active [id number] 4 2023 90 Pharmac y Data Transac tion Service Facilit y CEPHALEXIN (CEPHALEXIN MONOHYDRATE ), 500 MG, CAPSULE, ORAL, [employer], 500 ea. BOTTLE Active [id number] 4 2023 21 Pharmac y Data Transac tion Service Facilit y FLUTICASONE PROPIONATE (FLUTICASON E PROPIONATE) , 50 MCG, SPRAY SUSP, NASAL, [employer] 16 g AER W/ADAP Active [id number] 4 2023 48 Pharmac y Data Transac tion Service Facilit y FLUTICASONE PROPIONATE (FLUTICASON E PROPIONATE) , 50 MCG, SPRAY SUSP, NASAL, [employer] 16 g AER W/ADAP Active [id number] 4 2023 48 Pharmac y Data Transac tion Service Facilit y HYDROXYZINE HCL (hydroxyzin e HCl), 10 MG, TABLET, ORAL, [employer], 500 ea. BOTTLE Active [id number] 4 2023 30 Pharmac y Data Transac tion Service Facilit y KETOCONAZOL E (KETOCONAZO LE), 2%, SHAMPOO, TOPICAL, [employer] 120 ml BOTTLE Active [id number] 4 2023 120 Pharmac y Data Transac tion Service Facilit y LISINOPRIL- HYDROCHLORO THIAZIDE (lisinopril /hydrochlor othiazide), 20-12.5 MG, TABLET, ORAL, [employer] [facility], 500 ea. BOTTLE Active [id number] 4 2023 90 Pharmac y Data Transac tion Service Facilit y LORAZEPAM (lorazepam) , 1 MG, TABLET, ORAL, [employer], 500 ea. BOTTLE Active [id number] 4 2023 90 Pharmac y Data Transac tion Service Facilit y NITROFURANT OIN MONO-MACRO (nitrofuran toin monohydrate /macrocryst als), 100 MG, CAPSULE, ORAL, AMNEAL PHARMACE, 100 ea. BOTTLE Active [id number] 4 2023 10 Pharmac y Data Transac tion Service Facilit y NITROFURANT OIN MONO-MACRO (nitrofuran toin monohydrate /macrocryst als), 100 MG, CAPSULE, ORAL, AMNEAL PHARMACE, 100 ea. BOTTLE Active [id number] 4 2023 10 Pharmac y Data Transac tion Service Facilit y PHENAZOPYRI DINE HCL (phenazopyr idine HCl), 200 MG, TABLET, ORAL, AMNEAL PHARMACE, 100 ea. BOTTLE Active [id number] 4 2023 6 Pharmac y Data Transac tion Service Facilit y SERTRALINE HCL (SERTRALINE HCL), 100 MG, TABLET, ORAL, EXELAN PHARMACE, 500 ea. BOTTLE Active [id number] 4 2023 135 Pharmac y Data Transac tion Service Facilit y Immunizations Combined list of available immunizations from the Department of Defense and Veterans Affairs facilities. Immunization Series Date Given Administered By Site Reaction Lot Number CVX Code Drug Senior Manager Mmcoe Status Comments Source influenza, injectable, quadrivalent, preservative free 2019 [employer]OL[employer], () Not Given influenza , injectabl e, quadrival ent, preservat anders free [facility] Social History Combined list of available smoking, tobacco, and other social history from Department of Defense and Veterans Affairs facilities. Social History Type Response Date Comment Sour e This section is an empty social history section. DoD
[2024-05-02 10:27] LABS: Basophils Absolute Auto 0.02 K/uL (0.00-0.30); Basophils Percent Auto 0.2 % (0.0-3.0); Eosinophils Absolute Auto 0.14 K/uL (0.00-0.50); Eosinophils Percent Auto 1.5 % (0.0-7.0); Hematocrit 42.3 % (33.0-51.0); Hemoglobin* 13.9 gm/dL (12.0-16.0); Immature Granulocytes Abs Auto 0.01 K/uL (0.00-0.30); Immature Granulocytes Pct Auto 0.1 %; Lymphocytes Percent Auto 19.3 % (20-44); Mean Corpuscular HGB Conc 33 gm/dL (32-36); Mean Corpuscular Hemoglobin 30 pg (26-34); Mean Corpuscular Volume 91 fL (80-100); Monocytes Percent Auto 10.9 % (0.0-11.0); Neutrophils Absolute Auto 6.25 K/uL (1.7-7.0); Platelet Count* 269 K/uL (140-440); RDW Coefficient of Variation % 13.3 % (11.5-15.5); Red Blood Count 4.65 m/uL (4.00-5.20); White Blood Count* 9.19 K/uL (4.50-11.00)
[2024-05-02 10:30] LABS: Slide Review Reflex No
[2024-05-02 10:39] LABS: Chloride* 101 mmol/L (96-114); Potassium* 3.5 mmol/L (3.6-5.1); Sodium* 134 mmol/L (135-149)
[2024-05-02 10:40] LABS: Albumin* 4.2 g/dL (3.3-5.0)
[2024-05-02 10:41] LABS: Creatinine* 0.6 mg/dL (0.5-1.5); Est. Creatinine Clearance* 91.48; Estimated Glomerular Filt Rate 106 ml/min
[2024-05-02 10:42] LABS: Anion Gap 6 mEq/L (7-15); Blood Urea Nitrogen* 14 mg/dL (7-30); Carbon Dioxide* 27 mmol/L (20-32); Glucose* 112 mg/dL (60-115); Total Protein* 6.8 g/dL (6.0-8.3)
[2024-05-02 10:43] LABS: Alanine Aminotransferase* 17 U/L (4-35); Alkaline Phosphatase* 63 U/L (40-150); Aspartate Amino Transferase* 19 U/L (12-35); Bilirubin Direct* 0.2 mg/dL (0.0-0.5); Bilirubin Total* 0.4 mg/dL (0.1-1.5); Lipase* 292 U/L (23-300)
--- NOTE | 2024-05-02 11:37 | ED.NURSE ---
Pt sent home with work note.
== END 2024-05-02 11:33 | disposition home or self-care (01) ==
PROVIDERS: Emergency Provider Emergency Medicine Emergency Medical Services; PCP Physician Assistant
DX: R10.9 Unspecified abdominal pain (principal)
CPT/HCPCS: 36415; 74176; 80048; 80076; 81003; 83690; 85025; 99284; A9270